=== PATIENT | male | born 2000 | race Two or more races ===

== ENCOUNTER 2021-03-13 20:48 | Inpatient (IN) | payer OTHER ==
[2021-03-13 21:33] VITALS: BMI 25.2
[2021-03-13] MEDS ORDERED: IBUPROFEN 400 MG TABLET (FP) PO PRN (22:55)
[2021-03-13] MEDS ORDERED: BISMUTH SUBSALICYLATE 524 MG/30 ML PO PRN (22:55)
[2021-03-13] MEDS ORDERED: ACETAMINOPHEN 325 MG TABLET (FP) PO PRN ×2 (22:55)
[2021-03-13] MEDS ORDERED: MENTHOL/PHENOL 1 EACH UD MM PRN (22:55)
[2021-03-13] MEDS ORDERED: MAGNESIUM HYDROX 2400MG/30ML ORAL SUSPENSION 30 ML CUP PO PRN (22:55)
[2021-03-13] MEDS ORDERED: MAGNESIUM CITRATE 300 ML BOTTLE PO PRN (22:55)
[2021-03-13] MEDS ORDERED: MAG HYDROX/AL HYDROX/SIMETH 30 ML UNIT-DOSE CUP PO PRN (22:55)
[2021-03-13] MEDS ORDERED: ONDANSETRON *ODT* 4 MG TABLET SL PRN (22:55)
[2021-03-13] MEDS ORDERED: methaDONE HCL 10 MG TABLET (FOR DETOX USE ONLY) PO ONE (22:59)
[2021-03-13] MEDS ORDERED: cloNIDine HCL 0.1 MG TABLET PO PRN (22:59)
[2021-03-13] MEDS ORDERED: TRIMETHOBENZAMIDE HCL 200MG/2ML INJ IM ONE ×2 (23:00→23:08)
[2021-03-13] MEDS: diazePAM 5 MG TABLET PO SCH (23:58)
[2021-03-14] MEDS: diazePAM 5 MG TABLET PO SCH ×4 (05:10→22:14)
[2021-03-14] MEDS ORDERED: methaDONE HCL 10 MG TABLET (FOR DETOX USE ONLY) ONE (08:51)
[2021-03-14] MEDS: PRENATAL VITAMINS W/ FOLIC ACID TABLET (FP) PO SCH (10:42)
[2021-03-14] MEDS: METHOCARBAMOL 500 MG TABLET PO PRN ×2 (10:42→22:15)
[2021-03-14 10:53] LABS: HEMATOCRIT 42.7 % (35.4-49); HEMOGLOBIN 15.1 GM/dL (11.7-16.9); MCHC 35.2 g/dl (32.0-35.9); MEAN CELL VOLUME 79.3 fl (80-96); MEAN PLT VOLUME 10.1 fl (7.5-11.1); PLATELET COUNT 274 10^3/uL (134-434); RBC 5.38 M/mm3 (4.00-5.60); WHITE BLOOD COUNT 10.1 K/mm3 (4.0-10.0)
[2021-03-14 11:25] LABS: CALCIUM 9.6 mg/dL (8.5-10.1)
[2021-03-14 11:26] LABS: ALBUMIN 4.2 g/dl (3.4-5.0); BLOOD UREA NITROGEN 12.8 mg/dL (7-18)
[2021-03-14 11:29] LABS: CREATININE 0.9 mg/dL (0.55-1.3)
[2021-03-14 11:30] LABS: BILIRUBIN,TOTAL 1.4 mg/dL (0.2-1)
[2021-03-14 11:56] LABS: HIV INTERPRETATION NEGATIVE (NEGATIVE)
[2021-03-14] MEDS ORDERED: POTASSIUM CHLORIDE ORAL LIQUID 20 MEQ/15 ML PO ONE (12:19)
[2021-03-14] MEDS: diazePAM 5 MG TABLET PO PRN (13:25)
[2021-03-14] MEDS: propRANOLol HCL 10 MG TABLET PO SCH ×2 (13:31→22:14)
[2021-03-14] MEDS: hydrOXYzine PAMOATE 25 MG CAPSULE (FP) PO PRN (17:26)
[2021-03-14] MEDS ORDERED: SUVOREXANT 10 MG TABLET PO ONE (22:00)
[2021-03-14] MEDS ORDERED: MELATONIN 5 MG TABLETS PO SCH (22:00)
[2021-03-14] MEDS: THIAMINE HCL 100 MG TABLET (FP) PO SCH (22:14)
[2021-03-15] MEDS: diazePAM 5 MG TABLET PO PRN ×2 (02:35→10:22)
[2021-03-15] MEDS: diazePAM 5 MG TABLET PO SCH ×3 (05:06→22:35)
[2021-03-15] MEDS: propRANOLol HCL 10 MG TABLET PO SCH ×3 (05:07→22:36)
[2021-03-15] MEDS ORDERED: methaDONE HCL 10 MG TABLET (FOR DETOX USE ONLY) PO ONE (10:00)
[2021-03-15] MEDS: PRENATAL VITAMINS W/ FOLIC ACID TABLET (FP) PO SCH (10:22)
[2021-03-15] MEDS: METHOCARBAMOL 500 MG TABLET PO PRN (10:22)
[2021-03-15] MEDS: NICOTINE 10 MG CARTRIDGE (INHALER) IH PRN ×2 (11:56→17:11)
[2021-03-15] MEDS ORDERED: SUVOREXANT 10 MG TABLET PO PRN (14:19)
[2021-03-15] MEDS: hydrOXYzine PAMOATE 25 MG CAPSULE (FP) PO PRN ×2 (14:45→22:37)
[2021-03-15] MEDS: THIAMINE HCL 100 MG TABLET (FP) PO SCH (22:35)
[2021-03-15] MEDS: SUVOREXANT 15 MG TABLET PO PRN (22:36)
[2021-03-16] MEDS: diazePAM 5 MG TABLET PO PRN ×3 (00:39→22:15)
[2021-03-16] MEDS: diazePAM 5 MG TABLET PO SCH ×2 (05:08→17:18)
[2021-03-16] MEDS: propRANOLol HCL 10 MG TABLET PO SCH ×3 (05:08→22:13)
[2021-03-16] MEDS ORDERED: methaDONE HCL 10 MG TABLET (FOR DETOX USE ONLY) ONE (08:45)
[2021-03-16] MEDS: PRENATAL VITAMINS W/ FOLIC ACID TABLET (FP) PO SCH (10:10)
[2021-03-16] MEDS: THIAMINE HCL 100 MG TABLET (FP) PO SCH (22:13)
[2021-03-16] MEDS: SUVOREXANT 15 MG TABLET PO PRN (22:14)
[2021-03-17] MEDS: propRANOLol HCL 10 MG TABLET PO SCH ×3 (05:25→22:22)
[2021-03-17] MEDS ORDERED: diazePAM 5 MG TABLET PO ONE (06:00)
[2021-03-17] MEDS ORDERED: methaDONE HCL 10 MG TABLET (FOR DETOX USE ONLY) PO ONE (10:00)
[2021-03-17] MEDS: hydrOXYzine PAMOATE 25 MG CAPSULE (FP) PO PRN ×2 (10:02→17:06)
[2021-03-17] MEDS: METHOCARBAMOL 500 MG TABLET PO PRN (10:02)
[2021-03-17] MEDS: PRENATAL VITAMINS W/ FOLIC ACID TABLET (FP) PO SCH (10:03)
[2021-03-17] MEDS: NICOTINE 10 MG CARTRIDGE (INHALER) IH PRN ×2 (18:20→23:42)
[2021-03-17] MEDS: SUVOREXANT 15 MG TABLET PO PRN (22:22)
[2021-03-17] MEDS: THIAMINE HCL 100 MG TABLET (FP) PO SCH (22:22)
[2021-03-18] MEDS: propRANOLol HCL 10 MG TABLET PO SCH (06:51)
[2021-03-18 09:29] VITALS: BP 132/76; PULSE 78; TEMP 98
== END 2021-03-18 09:32 | disposition home or self-care (01) | DRG 773 ==
LOC: YASAS 20:48 → Y6N 21:43
PROVIDERS: ADMIT Allergy & Immunology; ATTEND Allergy & Immunology
PROC: HZ2ZZZZ Detoxification Services for Substance Abuse Treatment (ICD-10-PCS; principal; 2021-03-13)
DX: F11.23 Opioid dependence with withdrawal (principal); F13.230 Sedative, hypnotic or anxiolytic dependence with withdrawal, uncomplicated; F12.20 Cannabis dependence, uncomplicated; F19.280 Other psychoactive substance dependence with psychoactive substance-induced anxiety disorder; F19.24 Other psychoactive substance dependence with psychoactive substance-induced mood disorder; F20.9 Schizophrenia, unspecified; R79.89 Other specified abnormal findings of blood chemistry; Z87.891 Personal history of nicotine dependence
CPT/HCPCS: 36415; 80053; 85027; 86780; 87389; 93005; 93010; C9803; Q0162; U0003; U0005

== ENCOUNTER 2021-12-26 16:41 | Inpatient (IN) | payer OTHER ==
[2021-12-26 18:21] VITALS: BMI 21.7
[2021-12-26] MEDS ORDERED: MAGNESIUM CITRATE 300 ML BOTTLE PO PRN (18:42)
[2021-12-26] MEDS ORDERED: cloNIDine HCL 0.1 MG TABLET PO PRN (18:42)
[2021-12-26] MEDS ORDERED: ONDANSETRON *ODT* 4 MG TABLET SL PRN (18:42)
[2021-12-26] MEDS ORDERED: MAGNESIUM HYDROX 2400MG/30ML ORAL SUSPENSION 30 ML CUP PO PRN (18:42)
[2021-12-26] MEDS ORDERED: MAG HYDROX/AL HYDROX/SIMETH 30 ML UNIT-DOSE CUP PO PRN (18:42)
[2021-12-26] MEDS ORDERED: IBUPROFEN 600 MG TABLET (FP) PO PRN (18:42)
[2021-12-26] MEDS ORDERED: NICOTINE POLACRILEX 2 MG GUM BUC PRN (18:42)
[2021-12-26] MEDS ORDERED: DICYCLOMINE HCL 10 MG CAPSULE PO PRN (18:42)
[2021-12-26] MEDS ORDERED: BISMUTH SUBSALICYLATE 524 MG/30 ML PO PRN (18:42)
[2021-12-26] MEDS ORDERED: BENZOCAINE/MENTHOL (CHLORASEPTIC ) LOZENGE MM PRN (18:42)
[2021-12-26] MEDS ORDERED: IBUPROFEN 400 MG TABLET (FP) PO PRN (18:42)
[2021-12-26] MEDS ORDERED: methaDONE HCL 10 MG TABLET (FOR DETOX USE ONLY) PO ONE (18:42)
[2021-12-26] MEDS ORDERED: ACETAMINOPHEN 325 MG TABLET (FP) PO PRN ×2 (18:42)
[2021-12-26] MEDS ORDERED: METHOCARBAMOL 500 MG TABLET PO PRN (18:42)
[2021-12-26] MEDS ORDERED: LOPERAMIDE HCL 2 MG CAPSULE PO PRN (18:42)
[2021-12-26] MEDS ORDERED: MELATONIN 5 MG TABLETS PO SCH (22:00)
[2021-12-26] MEDS ORDERED: THIAMINE HCL 100 MG TABLET (FP) PO SCH (22:00)
[2021-12-27] MEDS ORDERED: NICOTINE 14 MG/24 HOURS TOPICAL PATCH TD SCH (10:00)
[2021-12-27] MEDS ORDERED: PRENATAL VITAMINS W/ FOLIC ACID TABLET (FP) PO SCH (10:00)
[2021-12-27] MEDS ORDERED: NICOTINE 10 MG CARTRIDGE (INHALER) IH PRN (10:03)
[2021-12-27 12:29] LABS: HEMATOCRIT 40.1 % (35.4-49); HEMOGLOBIN 13.6 GM/dL (11.7-16.9); MCH 27.1 pg (25.7-33.7); MCHC 33.9 g/dl (32.0-35.9); MEAN PLT VOLUME 9.9 fl (7.5-11.1); PLATELET COUNT 230 10^3/uL (134-434); RBC 5.01 M/mm3 (4.00-5.60); RDW 13.7 % (11.9-15.9); WHITE BLOOD COUNT 6.6 K/mm3 (4.0-10.0)
[2021-12-27 12:38] LABS: BLOOD UREA NITROGEN 9.9 mg/dL (7-18); CALCIUM 9.1 mg/dL (8.5-10.1)
[2021-12-27 12:39] LABS: ALBUMIN 3.8 g/dl (3.4-5.0)
[2021-12-27 12:42] LABS: CREATININE 0.8 mg/dL (0.55-1.3)
[2021-12-27] MEDS ORDERED: diazePAM 5 MG TABLET PO PRN (13:40)
[2021-12-27 13:53] LABS: HIV INTERPRETATION NEGATIVE (NEGATIVE)
[2021-12-27 19:04] VITALS: BP 116/73; PULSE 58; RESP 17; TEMP 97.1
[2021-12-27] MEDS ORDERED: SUVOREXANT 10 MG TABLET PO PRN (22:00)
[2021-12-28] MEDS ORDERED: methaDONE HCL 10 MG TABLET (FOR DETOX USE ONLY) PO ONE (10:00)
[2021-12-30] MEDS ORDERED: methaDONE HCL 10 MG TABLET (FOR DETOX USE ONLY) PO ONE (10:00)
== END 2021-12-27 16:52 | disposition left against medical advice (07) | DRG 770 ==
LOC: YASAS 16:41 → Y6N 19:38
PROVIDERS: ADMIT Allergy & Immunology; ATTEND Surgery
PROC: HZ2ZZZZ Detoxification Services for Substance Abuse Treatment (ICD-10-PCS; principal; 2021-12-26)
DX: F11.23 Opioid dependence with withdrawal (principal); F12.20 Cannabis dependence, uncomplicated; F17.210 Nicotine dependence, cigarettes, uncomplicated; F20.9 Schizophrenia, unspecified; F41.9 Anxiety disorder, unspecified; F41.0 Panic disorder [episodic paroxysmal anxiety]; Z28.310 Unvaccinated for COVID-19
CPT/HCPCS: 36415; 80053; 85027; 86780; 87389; 87811; 93005; 93010; C9803-CS; J0735; U0003; U0005

== ENCOUNTER 2023-02-24 23:19 | Inpatient (IN) | payer OTHER ==
[2023-02-25 00:25] VITALS: BMI 20.9
[2023-02-25] MEDS ORDERED: IBUPROFEN 400 MG TABLET (FP) PO PRN (05:28)
[2023-02-25] MEDS ORDERED: MAG HYDROX/AL HYDROX/SIMETH 30 ML UNIT-DOSE CUP PO PRN (05:28)
[2023-02-25] MEDS ORDERED: NALOXONE HCL 0.4 MG/ML VIAL IM PRN (05:28)
[2023-02-25] MEDS ORDERED: BENZONATATE 200 MG CAPSULE PO PRN (05:28)
[2023-02-25] MEDS ORDERED: ONDANSETRON *ODT* 4 MG TABLET SL PRN (05:28)
[2023-02-25] MEDS ORDERED: NALOXONE HCL (KLOXXADO) 8 MG SPRAY NS PRN (05:28)
[2023-02-25] MEDS ORDERED: POLYETHYLENE GLYCOL (HEALTHYLAX) 3350 17 GM PACKET PO PRN (05:28)
[2023-02-25] MEDS ORDERED: BISMUTH SUBSALICYLATE 524 MG/30 ML PO PRN (05:28)
[2023-02-25] MEDS ORDERED: DICYCLOMINE HCL 10 MG CAPSULE PO PRN (05:28)
[2023-02-25] MEDS ORDERED: guaiFENesin 600 MG TABLET.ER (FP) PO PRN (05:28)
[2023-02-25] MEDS ORDERED: MAGNESIUM HYDROX 2400MG/30ML ORAL SUSPENSION 30 ML CUP PO PRN (05:28)
[2023-02-25] MEDS ORDERED: ACETAMINOPHEN 325 MG TABLET (FP) PO PRN (05:28)
[2023-02-25] MEDS ORDERED: hydrOXYzine PAMOATE 25 MG CAPSULE (FP) PO PRN (05:28)
[2023-02-25] MEDS ORDERED: LOPERAMIDE HCL 2 MG CAPSULE PO PRN (05:28)
[2023-02-25] MEDS ORDERED: IBUPROFEN 600 MG TABLET (FP) PO PRN (05:28)
[2023-02-25] MEDS ORDERED: METHOCARBAMOL 500 MG TABLET PO PRN (05:28)
[2023-02-25] MEDS ORDERED: BENZOCAINE/MENTHOL (CHLORASEPTIC ) LOZENGE MM PRN (05:28)
[2023-02-25 08:57] VITALS: BP 101/60; PULSE 61; RESP 18; TEMP 97.3
[2023-02-25] MEDS ORDERED: PRENATAL VITAMINS W/ FOLIC ACID TABLET (FP) PO SCH (10:00)
[2023-02-25] MEDS ORDERED: THIAMINE HCL 100 MG TABLET (FP) PO SCH (22:00)
[2023-02-25] MEDS ORDERED: MELATONIN 5 MG TABLETS PO SCH (22:00)
== END 2023-02-25 11:05 | disposition home or self-care (01) | DRG 773 ==
LOC: YASAS 23:19 → Y6N 02-25 06:11 → UNDOADMIN 02-25 06:11 → UNDODISIN 02-25 11:05
PROVIDERS: ADMIT Allergy & Immunology; ATTEND Surgery
PROC: HZ2ZZZZ Detoxification Services for Substance Abuse Treatment (ICD-10-PCS; principal; 2023-02-25)
DX: F11.20 Opioid dependence, uncomplicated (principal); F12.20 Cannabis dependence, uncomplicated; F17.210 Nicotine dependence, cigarettes, uncomplicated; F20.9 Schizophrenia, unspecified; F41.1 Generalized anxiety disorder
CPT/HCPCS: 87635; 87811; 93005; 93010

== ENCOUNTER 2023-03-06 15:46 | Inpatient (IN) | payer OTHER ==
[2023-03-06 17:24] VITALS: BMI 20.9
[2023-03-06] MEDS ORDERED: BENZOCAINE/MENTHOL (CHLORASEPTIC ) LOZENGE MM PRN (19:06)
[2023-03-06] MEDS ORDERED: LOPERAMIDE HCL 2 MG CAPSULE PO PRN (19:06)
[2023-03-06] MEDS ORDERED: POLYETHYLENE GLYCOL (HEALTHYLAX) 3350 17 GM PACKET PO PRN (19:06)
[2023-03-06] MEDS ORDERED: NALOXONE HCL 0.4 MG/ML VIAL IM PRN (19:06)
[2023-03-06] MEDS ORDERED: BISMUTH SUBSALICYLATE 524 MG/30 ML PO PRN (19:06)
[2023-03-06] MEDS ORDERED: IBUPROFEN 600 MG TABLET (FP) PO PRN (19:06)
[2023-03-06] MEDS ORDERED: ACETAMINOPHEN 325 MG TABLET (FP) PO PRN (19:06)
[2023-03-06] MEDS ORDERED: guaiFENesin 600 MG TABLET.ER (FP) PO PRN (19:06)
[2023-03-06] MEDS ORDERED: MAG HYDROX/AL HYDROX/SIMETH 30 ML UNIT-DOSE CUP PO PRN (19:06)
[2023-03-06] MEDS ORDERED: NALOXONE HCL (KLOXXADO) 8 MG SPRAY NS PRN (19:06)
[2023-03-06] MEDS ORDERED: IBUPROFEN 400 MG TABLET (FP) PO PRN (19:06)
[2023-03-06] MEDS ORDERED: BENZONATATE 200 MG CAPSULE PO PRN (19:06)
[2023-03-06] MEDS ORDERED: DICYCLOMINE HCL 10 MG CAPSULE PO PRN (19:06)
[2023-03-06] MEDS ORDERED: MAGNESIUM HYDROX 2400MG/30ML ORAL SUSPENSION 30 ML CUP PO PRN (19:06)
[2023-03-06] MEDS ORDERED: MELATONIN 5 MG TABLETS PO SCH (22:00)
[2023-03-06] MEDS: hydrOXYzine PAMOATE 25 MG CAPSULE (FP) PO PRN (22:20)
[2023-03-06] MEDS: THIAMINE HCL 100 MG TABLET (FP) PO SCH (22:20)
[2023-03-06 23:53] LABS: PH,URINE 5.5 (5.0-8.0); URINE APPEARANCE CLEAR; URINE BILIRUBIN NEGATIVE (NEGATIVE); URINE COLOR YELLOW; URINE GLUCOSE (UA) NEGATIVE (NEGATIVE); URINE KETONE TRACE (NEGATIVE); URINE LEUK ESTERASE NEGATIVE (NEGATIVE); URINE NITRITE NEGATIVE (NEGATIVE); URINE PROTEIN NEGATIVE (NEGATIVE); URINE UROBILINOGEN 0.2 mg/dL (0.2-1.0)
[2023-03-07] MEDS: METHOCARBAMOL 500 MG TABLET PO PRN ×3 (05:47→23:35)
[2023-03-07] MEDS: hydrOXYzine PAMOATE 25 MG CAPSULE (FP) PO PRN ×2 (05:47→17:31)
[2023-03-07] MEDS ORDERED: methaDONE HCL 10 MG TABLET (FOR DETOX USE ONLY) PO ONE (09:18)
[2023-03-07] MEDS: PRENATAL VITAMINS W/ FOLIC ACID TABLET (FP) PO SCH (10:00)
[2023-03-07 12:20] LABS: HEMATOCRIT 45.7 % (35.4-49); HEMOGLOBIN 14.9 GM/dL (11.7-16.9); MCH 26.7 pg (25.7-33.7); MCHC 32.6 g/dl (32.0-35.9); MEAN CELL VOLUME 81.9 fl (80-96); MEAN PLT VOLUME 10.2 fl (7.5-11.1); PLATELET COUNT 346 10^3/uL (134-434); RBC 5.59 M/mm3 (4.00-5.60); RDW 14.3 % (11.9-15.9); WHITE BLOOD COUNT 8.4 K/mm3 (4.0-10.0)
[2023-03-07 12:24] LABS: CHLORIDE 99 mmol/L (98-107); POTASSIUM 4.2 mmol/L (3.5-5.1); SODIUM 138 mmol/L (136-145)
[2023-03-07] MEDS: ONDANSETRON *ODT* 4 MG TABLET SL PRN (12:25)
[2023-03-07 12:38] LABS: ALBUMIN 4.8 g/dl (3.4-5.0); ANION GAP 8 mmol/L (4-13); BLOOD UREA NITROGEN 8.4 mg/dL (7-18); CALCIUM 9.7 mg/dL (8.5-10.1); CO2 31 mmol/L (21-32)
[2023-03-07 12:39] LABS: GLUCOSE,RANDOM 93 mg/dL (74-106)
[2023-03-07 12:41] LABS: CREATININE 0.8 mg/dL (0.55-1.3); SGOT/AST 14 U/L (15-37); SGPT/ALT 19 U/L (13-61)
[2023-03-07 12:43] LABS: BILIRUBIN,TOTAL 1.3 mg/dL (0.2-1)
[2023-03-07 12:44] LABS: ALK PHOS 77 U/L (45-117)
[2023-03-07 12:45] LABS: TOT PROT 8.4 g/dl (6.4-8.2)
[2023-03-07] MEDS: NICOTINE POLACRILEX 4 MG GUM BUC PRN (13:27)
[2023-03-07] MEDS: THIAMINE HCL 100 MG TABLET (FP) PO SCH (22:18)
[2023-03-07] MEDS: SUVOREXANT 10 MG TABLET PO PRN (22:19)
[2023-03-08] MEDS: hydrOXYzine PAMOATE 25 MG CAPSULE (FP) PO PRN ×3 (00:58→17:16)
[2023-03-08] MEDS: PRENATAL VITAMINS W/ FOLIC ACID TABLET (FP) PO SCH (09:24)
[2023-03-08] MEDS: METHOCARBAMOL 500 MG TABLET PO PRN (17:17)
[2023-03-08] MEDS: NICOTINE POLACRILEX 4 MG GUM BUC PRN (18:55)
[2023-03-08] MEDS: THIAMINE HCL 100 MG TABLET (FP) PO SCH (22:00)
[2023-03-08] MEDS: SUVOREXANT 10 MG TABLET PO PRN (22:02)
[2023-03-09] MEDS: ONDANSETRON *ODT* 4 MG TABLET SL PRN (07:00)
[2023-03-09] MEDS: PRENATAL VITAMINS W/ FOLIC ACID TABLET (FP) PO SCH (09:21)
[2023-03-09] MEDS: METHOCARBAMOL 500 MG TABLET PO PRN (09:21)
[2023-03-09] MEDS: hydrOXYzine PAMOATE 25 MG CAPSULE (FP) PO PRN (09:21)
[2023-03-09] MEDS ORDERED: methaDONE HCL 10 MG TABLET (FOR DETOX USE ONLY) PO ONE (10:00)
[2023-03-09] MEDS ORDERED: cloNIDine HCL 0.1 MG TABLET PO PRN (13:08)
[2023-03-09 17:14] VITALS: PULSE 74; RESP 16
[2023-03-09 19:38] VITALS: BP 120/68; TEMP 98
[2023-03-09] MEDS ORDERED: SUVOREXANT 15 MG TABLET PO PRN (22:00)
[2023-03-11] MEDS ORDERED: methaDONE HCL 10 MG TABLET (FOR DETOX USE ONLY) PO ONE (10:00)
== END 2023-03-09 18:30 | disposition left against medical advice (07) | DRG 770 ==
LOC: YASAS 15:46 → Y6N 19:55
PROVIDERS: ADMIT Allergy & Immunology; ATTEND Surgery
PROC: HZ2ZZZZ Detoxification Services for Substance Abuse Treatment (ICD-10-PCS; principal; 2023-03-06)
DX: F11.23 Opioid dependence with withdrawal (principal); F12.20 Cannabis dependence, uncomplicated; F17.210 Nicotine dependence, cigarettes, uncomplicated; F41.9 Anxiety disorder, unspecified
CPT/HCPCS: 36415; 80053; 80307; 81003; 85027; 86780; 87635; Q0162

== ENCOUNTER 2023-05-15 20:00 | Inpatient (IN) | payer OTHER ==
[2023-05-15 21:54] VITALS: BMI 21.7
[2023-05-16] MEDS ORDERED: ONDANSETRON *ODT* 4 MG TABLET SL PRN (02:05)
[2023-05-16] MEDS ORDERED: POLYETHYLENE GLYCOL (HEALTHYLAX) 3350 17 GM PACKET PO PRN (02:05)
[2023-05-16] MEDS ORDERED: BENZOCAINE/MENTHOL (CHLORASEPTIC ) LOZENGE MM PRN (02:05)
[2023-05-16] MEDS ORDERED: NICOTINE POLACRILEX 4 MG GUM BUC PRN (02:05)
[2023-05-16] MEDS ORDERED: BENZONATATE 200 MG CAPSULE PO PRN (02:05)
[2023-05-16] MEDS ORDERED: MAGNESIUM HYDROX 2400MG/30ML ORAL SUSPENSION 30 ML CUP PO PRN (02:05)
[2023-05-16] MEDS ORDERED: ACETAMINOPHEN 325 MG TABLET (FP) PO PRN (02:05)
[2023-05-16] MEDS ORDERED: LOPERAMIDE HCL 2 MG CAPSULE PO PRN (02:05)
[2023-05-16] MEDS ORDERED: guaiFENesin 600 MG TABLET.ER (FP) PO PRN (02:05)
[2023-05-16] MEDS ORDERED: BISMUTH SUBSALICYLATE 524 MG/30 ML PO PRN (02:05)
[2023-05-16] MEDS ORDERED: IBUPROFEN 600 MG TABLET (FP) PO PRN (02:05)
[2023-05-16] MEDS ORDERED: MAG HYDROX/AL HYDROX/SIMETH 30 ML UNIT-DOSE CUP PO PRN (02:05)
[2023-05-16] MEDS ORDERED: DICYCLOMINE HCL 10 MG CAPSULE PO PRN (02:05)
[2023-05-16] MEDS ORDERED: NALOXONE HCL 0.4 MG/ML VIAL IM PRN (02:05)
[2023-05-16] MEDS ORDERED: NALOXONE HCL (KLOXXADO) 8 MG SPRAY NS PRN (02:05)
[2023-05-16] MEDS ORDERED: IBUPROFEN 400 MG TABLET (FP) PO PRN (02:05)
[2023-05-16] MEDS: NICOTINE 14 MG/24 HOURS TOPICAL PATCH TD SCH (10:04)
[2023-05-16] MEDS: PRENATAL VITAMINS W/ FOLIC ACID TABLET (FP) PO SCH (10:04)
[2023-05-16] MEDS: METHOCARBAMOL 500 MG TABLET PO PRN ×2 (10:05→19:03)
[2023-05-16] MEDS ORDERED: methaDONE HCL 10 MG TABLET (FOR DETOX USE ONLY) PO ONE (10:15)
[2023-05-16] MEDS ORDERED: cloNIDine HCL 0.1 MG TABLET PO PRN (14:09)
[2023-05-16] MEDS: diazePAM 5 MG TABLET PO PRN (19:04)
[2023-05-16] MEDS ORDERED: MELATONIN 5 MG TABLETS PO SCH (22:00)
[2023-05-16] MEDS ORDERED: SUVOREXANT 15 MG TABLET PO PRN (22:00)
[2023-05-16] MEDS: THIAMINE HCL 100 MG TABLET (FP) PO SCH (22:06)
[2023-05-16] MEDS: hydrOXYzine PAMOATE 25 MG CAPSULE (FP) PO PRN (22:08)
[2023-05-17] MEDS: diazePAM 5 MG TABLET PO PRN ×4 (04:28→19:32)
[2023-05-17 08:31] LABS: HEMATOCRIT 41.4 % (35.4-49); HEMOGLOBIN 13.6 GM/dL (11.7-16.9); MCH 26.6 pg (25.7-33.7); MCHC 32.8 g/dl (32.0-35.9); MEAN CELL VOLUME 81.2 fl (80-96); MEAN PLT VOLUME 10.8 fl (7.5-11.1); PLATELET COUNT 268 10^3/uL (134-434); RDW 14.1 % (11.9-15.9); WHITE BLOOD COUNT 6.9 K/mm3 (4.0-10.0)
[2023-05-17 09:00] LABS: POTASSIUM 3.9 mmol/L (3.5-5.1)
[2023-05-17 09:02] LABS: CALCIUM 8.9 mg/dL (8.5-10.1)
[2023-05-17 09:03] LABS: ALBUMIN 3.4 g/dl (3.4-5.0); BLOOD UREA NITROGEN 6.3 mg/dL (7-18)
[2023-05-17 09:06] LABS: CREATININE 0.7 mg/dL (0.55-1.3)
[2023-05-17 09:07] LABS: BILIRUBIN,TOTAL 0.4 mg/dL (0.2-1)
[2023-05-17 09:08] LABS: TOT PROT 6.3 g/dl (6.4-8.2)
[2023-05-17] MEDS: PRENATAL VITAMINS W/ FOLIC ACID TABLET (FP) PO SCH (09:40)
[2023-05-17] MEDS: NICOTINE 14 MG/24 HOURS TOPICAL PATCH TD SCH (09:40)
[2023-05-17] MEDS: METHOCARBAMOL 500 MG TABLET PO PRN (13:26)
[2023-05-17] MEDS ORDERED: SUVOREXANT 20 MG TABLET PO PRN (22:00)
[2023-05-17] MEDS: THIAMINE HCL 100 MG TABLET (FP) PO SCH (22:28)
[2023-05-18] MEDS: METHOCARBAMOL 500 MG TABLET PO PRN (08:39)
[2023-05-18] MEDS: hydrOXYzine PAMOATE 25 MG CAPSULE (FP) PO PRN (08:39)
[2023-05-18] MEDS ORDERED: methaDONE HCL 10 MG TABLET (FOR DETOX USE ONLY) PO ONE (10:00)
[2023-05-18] MEDS: PRENATAL VITAMINS W/ FOLIC ACID TABLET (FP) PO SCH (10:08)
[2023-05-18] MEDS: NICOTINE 14 MG/24 HOURS TOPICAL PATCH TD SCH (10:09)
[2023-05-18 18:12] VITALS: BP 134/94; PULSE 73; RESP 16; TEMP 98.4
[2023-05-20] MEDS ORDERED: methaDONE HCL 10 MG TABLET (FOR DETOX USE ONLY) PO ONE (10:00)
== END 2023-05-18 18:00 | disposition left against medical advice (07) | DRG 770 ==
LOC: YASAS 20:00 → Y6N 05-16 03:01
PROVIDERS: ADMIT Allergy & Immunology; ATTEND Surgery
PROC: HZ2ZZZZ Detoxification Services for Substance Abuse Treatment (ICD-10-PCS; principal; 2023-05-16)
DX: F11.23 Opioid dependence with withdrawal (principal); F13.10 Sedative, hypnotic or anxiolytic abuse, uncomplicated; F12.20 Cannabis dependence, uncomplicated; F17.210 Nicotine dependence, cigarettes, uncomplicated; F19.282 Other psychoactive substance dependence with psychoactive substance-induced sleep disorder; Z91.410 Personal history of adult physical and sexual abuse
CPT/HCPCS: 36415; 80053; 80307; 85027; 86780; 87635; 87811; Q0162

== ENCOUNTER 2023-12-23 22:10 | Inpatient (IN) | payer OTHER ==
[2023-12-23 22:54] VITALS: BMI 23.1
[2023-12-23] MEDS ORDERED: NICOTINE POLACRILEX 2 MG GUM BUC PRN (23:58)
[2023-12-23] MEDS ORDERED: IBUPROFEN 400 MG TABLET (FP) PO PRN (23:58)
[2023-12-23] MEDS ORDERED: BENZOCAINE/MENTHOL (CHLORASEPTIC ) LOZENGE MM PRN (23:58)
[2023-12-23] MEDS ORDERED: IBUPROFEN 600 MG TABLET (FP) PO PRN (23:58)
[2023-12-23] MEDS ORDERED: ONDANSETRON *ODT* 4 MG TABLET SL PRN (23:58)
[2023-12-23] MEDS ORDERED: NALOXONE (NARCAN) HCL 4 MG/0.1 ML SPRAY NS PRN (23:58)
[2023-12-23] MEDS ORDERED: guaiFENesin 600 MG TABLET.ER (FP) PO PRN (23:58)
[2023-12-23] MEDS ORDERED: MAGNESIUM HYDROX 2400MG/30ML ORAL SUSPENSION 30 ML CUP PO PRN (23:58)
[2023-12-23] MEDS ORDERED: POLYETHYLENE GLYCOL (HEALTHYLAX) 3350 17 GM PACKET PO PRN (23:58)
[2023-12-23] MEDS ORDERED: MAG HYDROX/AL HYDROX/SIMETH 30 ML UNIT-DOSE CUP PO PRN (23:58)
[2023-12-23] MEDS ORDERED: ACETAMINOPHEN 325 MG TABLET (FP) PO PRN (23:58)
[2023-12-23] MEDS ORDERED: LOPERAMIDE HCL 2 MG CAPSULE PO PRN (23:58)
[2023-12-23] MEDS ORDERED: DICYCLOMINE HCL 10 MG CAPSULE PO PRN (23:58)
[2023-12-23] MEDS ORDERED: BISMUTH SUBSALICYLATE 524 MG/30 ML PO PRN (23:58)
[2023-12-23] MEDS ORDERED: BENZONATATE 200 MG CAPSULE PO PRN (23:58)
[2023-12-23] MEDS ORDERED: NALOXONE HCL 0.4 MG/ML VIAL IM PRN (23:58)
[2023-12-23] MEDS ORDERED: cloNIDine HCL 0.1 MG TABLET PO PRN (23:59)
[2023-12-24] MEDS: methaDONE HCL 10 MG TABLET (FOR DETOX USE ONLY) PO ONE
[2023-12-24] MEDS ORDERED: methaDONE HCL 10 MG TABLET (FOR DETOX USE ONLY) ONE (00:25)
[2023-12-24] MEDS: hydrOXYzine PAMOATE 25 MG CAPSULE (FP) PO PRN (01:24)
[2023-12-24] MEDS: METHOCARBAMOL 500 MG TABLET PO PRN (01:24)
[2023-12-24] MEDS: NICOTINE 14 MG/24 HOURS TOPICAL PATCH TD SCH (09:33)
[2023-12-24] MEDS: PRENATAL VITAMINS W/ FOLIC ACID TABLET (FP) PO SCH (09:35)
[2023-12-24 11:18] LABS: HEMATOCRIT 40.5 % (35.4-49); HEMOGLOBIN 14.1 GM/dL (11.7-16.9); MCH 28.5 pg (25.7-33.7); MCHC 34.8 g/dl (32.0-35.9); MEAN CELL VOLUME 81.9 fl (80-96); PLATELET COUNT 279 10^3/uL (134-434); RBC 4.94 M/mm3 (4.00-5.60); RDW 14.1 % (11.9-15.9); WHITE BLOOD COUNT 8.7 K/mm3 (4.0-10.0)
[2023-12-24 11:22] LABS: CHLORIDE 104 mmol/L (98-107); POTASSIUM 3.9 mmol/L (3.5-5.1); SODIUM 140 mmol/L (136-145)
[2023-12-24 11:25] LABS: ALBUMIN 3.7 g/dl (3.4-5.0)
[2023-12-24 11:26] LABS: BLOOD UREA NITROGEN 7.4 mg/dL (7-18)
[2023-12-24 11:28] LABS: ANION GAP 6 mmol/L (4-13); CO2 29 mmol/L (21-32); GLUCOSE,RANDOM 106 mg/dL (74-106)
[2023-12-24 11:31] LABS: SGPT/ALT 17 U/L (13-61); TOT PROT 6.4 g/dl (6.4-8.2)
[2023-12-24 11:32] LABS: ALK PHOS 63 U/L (45-117); CREATININE 0.8 mg/dL (0.55-1.3); SGOT/AST 10 U/L (15-37)
[2023-12-24 11:33] LABS: BILIRUBIN,TOTAL 0.8 mg/dL (0.2-1)
[2023-12-24] MEDS: diazePAM 5 MG TABLET PO PRN (12:18)
[2023-12-24] MEDS: methaDONE HCL 40 MG DISPERSABLE TABLET PO ONE (15:53)
[2023-12-24] MEDS: SUVOREXANT 15 MG TABLET PO PRN (23:04)
[2023-12-24] MEDS: MELATONIN 5 MG TABLETS PO SCH (23:15)
[2023-12-24] MEDS: THIAMINE 100 MG TABLET PO SCH (23:16)
[2023-12-25] MEDS: methaDONE 40 MG, methaDONE 10 MG PO ONE (09:28)
[2023-12-25] MEDS ORDERED: SUVOREXANT 10 MG TABLET PO PRN (22:00)
[2023-12-25] MEDS: SUVOREXANT 20 MG TABLET PO PRN (22:21)
[2023-12-26] MEDS: methaDONE HCL 10 MG TABLET (FOR DETOX USE ONLY) PO ONE (09:31)
[2023-12-26] MEDS ORDERED: methaDONE 40 MG, methaDONE 20 MG PO ONE (10:00)
[2023-12-26] MEDS ORDERED: methaDONE HCL 10 MG TABLET (FOR DETOX USE ONLY) PO ONE (10:00)
[2023-12-27] MEDS ORDERED: methaDONE 40 MG, methaDONE 30 MG PO ONE (10:00)
[2023-12-28 08:42] VITALS: BP 121/78; PULSE 60; RESP 18; TEMP 98.2
[2023-12-28] MEDS: methaDONE HCL 10 MG TABLET (FOR DETOX USE ONLY) PO ONE (09:31)
[2023-12-28] MEDS ORDERED: methaDONE HCL 40 MG DISPERSABLE TABLET PO ONE (10:00)
[2023-12-28] MEDS ORDERED: methaDONE HCL 10 MG TABLET (FOR DETOX USE ONLY) PO ONE (10:00)
[2023-12-29] MEDS ORDERED: methaDONE 80 MG, methaDONE 10 MG PO ONE (10:00)
== END 2023-12-28 10:15 | disposition home or self-care (01) | DRG 773 ==
LOC: YASAS 22:10 → Y6N 23:38
PROVIDERS: ADMIT Allergy & Immunology; ATTEND Surgery
PROC: HZ2ZZZZ Detoxification Services for Substance Abuse Treatment (ICD-10-PCS; principal; 2023-12-23)
DX: F11.23 Opioid dependence with withdrawal (principal); F17.210 Nicotine dependence, cigarettes, uncomplicated; F19.982 Other psychoactive substance use, unspecified with psychoactive substance-induced sleep disorder; F19.980 Other psychoactive substance use, unspecified with psychoactive substance-induced anxiety disorder; F41.9 Anxiety disorder, unspecified; Z56.0 Unemployment, unspecified
CPT/HCPCS: 36415; 80053; 80305; 80307; 85027; 86780; 93005; 93010